=== PATIENT | male | born 1970 | race Caucasian/White ===

== ENCOUNTER 2018-06-29 08:37 | Emergency (ER) | payer SELFPAY ==
[2018-06-29 09:17] LABS: #Eosinphils 0.1 thou/uL (0.0-0.7); #Monocytes 0.6 thou/uL (0.11-0.59); #Neutrophils 3.1 thou/uL (1.40-6.50); %Basophils 0.8 % (0.0-1.0); %Eosinophils 1.3 % (0.0-10.0); %Lymphocytes 21.2 % (21.0-51.0); %Monocytes 12.7 % (0.0-10.0); %Neutrophils 64.1 % (42.0-75.0); Mean Corpuscular HGB CONC 32.2 g/dL (32.0-36.0); Mean Corpuscular Hemoglobin 28.7 pg (27.0-31.0); Mean Corpuscular Volume 89.2 fL (78.0-98.0); Mean Platelet Volume 6.1 fL (7.4-10.4); Platelet Count 355 thou/uL (130-400); RBC Distribution Width 13.1 % (11.5-14.5); Red Blood Cell (RBC) Count 2.78 mill/uL (4.70-6.10); White Blood Cell (WBC) Count 4.8 thou/uL (4.8-10.8)
[2018-06-29 09:25] LABS: INR-International Normal Ratio 1.1; PTT 30.3 SEC (22.9-36.1)
--- NOTE | 2018-06-29 09:25 | RAD ---
CHEST ONE VIEW: History: Chest pain and swelling. Comparison: None. FINDINGS: There is mild fullness of the left hilum. No pneumothorax. No effusion. No acute osseous abnormality. IMPRESSION: Mild fullness of the left hilum. Non-emergent CT of the chest may be beneficial to evaluate bronchiti s versus a mass. POS: [facility]
[2018-06-29] MEDS ORDERED: Furosemide 40 MG/4 ML VIAL ONE (09:34)
[2018-06-29 09:40] LABS: ALT (SGPT) 33 U/L (8-55); AST (SGOT) 36 U/L (5-34); Albumin 3.4 g/dL (3.5-5.0); Alkaline Phosphatase 93 U/L (40-150); Anion Gap 10 mmol/L (10-20); BUN (Urea Nitrogen) 20 mg/dL (8.9-20.6); Bilirubin, Total 0.4 mg/dL (0.2-1.2); Calc. Creatinine Clearance 0 mL/min (70-130); Calcium 8.3 mg/dL (7.8-10.44); Carbon Dioxide 23 mmol/L (22-29); Chloride 108 mmol/L (98-107); Estimated GFR-MDRD 86; Globulin 2.4 g/dL (2.4-3.5); Glucose 102 mg/dL (70-105); Potassium 3.8 mmol/L (3.5-5.1); Protein, Total 5.8 g/dL (6.0-8.3); Sodium 137 mmol/L (136-145)
[2018-06-29 09:43] LABS: CKMB 4.1 ng/mL (0-6.6); Troponin I Less than 0.010 ng/mL (< 0.028)
[2018-06-29] MEDS ORDERED: cloNIDine 0.1 MG TAB ONE (09:44)
[2018-06-29 10:26] LABS: Amphetamine Detected (NotDetected); Medtox Reader # READER 4; Methamphetamine Detected (NotDetected); THC/Cannabinoid Screen Detected (NotDetected)
[2018-06-29 10:27] LABS: Barbiturates Screen Not Detected (NotDetected); Benzodiazepine Screen Not Detected (NotDetected); Cocaine Metabolite Screen Not Detected (NotDetected); Medtox Control Line Valid? VALID (VALID); Methadone Not Detected (NotDetected); Opiate Screen Not Detected (NotDetected); Oxycodone Screen Not Detected (NotDetected); Phencyclidine (PCP) Not Detected (NotDetected); Tricyclic Screen Not Detected (NotDetected)
== END 2018-06-29 10:53 | disposition home or self-care (01) ==
LOC: ERS 08:37
DX: R60.0 Localized edema (principal); I10 Essential (primary) hypertension; F17.210 Nicotine dependence, cigarettes, uncomplicated
CPT/HCPCS: 71045; 80053; 80306; 82274; 82553; 83880; 84484; 85025; 85610; 85730; 93005; 96374; J1940

== ENCOUNTER 2024-01-17 21:09 | Emergency (ER) | payer SELFPAY ==
[~2024-01-17 21:09] MED LIST: Iopamidol-370 76% 500 ML MDV (1 ML CHARGE) ONE
[2024-01-17] MEDS ORDERED: Atropine Sulfate 1 mg/10 ml Syringe ONE (21:20)
[2024-01-17] MEDS ORDERED: EPINEPHrine 1 MG/10 ML Abboject SYRINGE ONE (21:20)
[2024-01-17] MEDS ORDERED: Sodium Bicarb 50 MEQ/50 ML Abboject 8.4% SYRINGE ONE (21:20)
[2024-01-17] MEDS ORDERED: Naloxone HCl 0.4 mg/ml Vial ONE (21:28)
[2024-01-17] MEDS ORDERED: NOREPINEPHRINE 8 MG/250 ML-D5W 250 ML ONE (21:36)
[2024-01-17] MEDS ORDERED: fentaNYL 50 mcg/mL 1 mL Vial ONE (21:36)
[2024-01-17 22:08] LABS: Bacteria/HPF 2+ HPF (None Seen); Bilirubin Negative (Negative); Blood, Urine Trace (Negative); CAUTI Indications for Culture Alt mental st,lethar; Clarity Clear (Clear); Glucose, Urine (Dipstick) Normal (Negative); Ketone, Urine Negative (Negative); Leukocyte Negative Leu/uL (Negative); Nitrite Negative (Negative); Protein, Urine (Dipstick) 50 mg/dL (Neg-Trace); Specific Gravity, Urine 1.022 (1.002-1.036); Squamous Epithelial None Seen HPF (0-3); WBC/HPF None Seen HPF (0-3); pH, Urine 6.5 (5.0-9.0)
[2024-01-17 22:11] LABS: Amphetamine Not Detected (NotDetected); Barbiturates Screen Not Detected (NotDetected); Benzodiazepine Screen Not Detected (NotDetected); Cocaine Metabolite Screen Not Detected (NotDetected); Methadone Not Detected (NotDetected); Methamphetamine Not Detected (NotDetected); Opiate Screen Not Detected (NotDetected); Oxycodone Screen Not Detected (NotDetected); Phencyclidine (PCP) Not Detected (NotDetected); THC/Cannabinoid Screen Not Detected (NotDetected); Tricyclic Screen Not Detected (NotDetected)
[2024-01-17 22:14] LABS: Base Excess (BEa) -4.2 mEq/L (-2.0 to +3.0); CO2 Tension 33.8 mmHg (35.0-45.0); Carboxyhemoglobin (COHb) 0.1 gm% (0.0-3.0); Hematocrit-ABG 40 % (42.0-52.0); Hemoglobin (Hb) 13.6 g/dL (14.0-18.0); O2 Tension (PaO2), arterial 239.5 mmHg (80.0-100.0); Potassium - ABG Lab 3.26 mmol/L (3.70-5.30); pH, Arterial 7.389 (7.35-7.45)
[2024-01-17 22:15] LABS: Analyzer IN Cardio ER; Calcium, Ionized (arterial) 1.04 mmol/L (1.12-1.30); Puncture Site RBR
[2024-01-17 22:16] LABS: Sperm/HPF 4+ HPF (None Seen)
[2024-01-17 22:18] LABS: Urine Culture Reflex No No
[2024-01-17 22:23] LABS: #Basophils 0.04 10x3/uL (0.0-0.2); %Basophils 0.2 % (0.0-1.0); %Eosinophils 0.6 % (0.0-10.0); %Lymphocytes 11.8 % (21.0-51.0); %Monocytes 6.4 % (0.0-10.0); %Neutrophils 80.4 % (42.0-75.0); Hemoglobin 13.2 g/dL (14.0-18.0); Mean Corpuscular HGB CONC 34.7 g/dL (32.0-36.0); Mean Corpuscular Hemoglobin 30.3 pg (27.0-31.0); Mean Corpuscular Volume 87.2 fL (78.0-98.0); Mean Platelet Volume 10.1 fL (7.4-10.4); Platelet Count 218 10x3/uL (130-400); RBC Distribution Width 12.2 % (11.5-14.5); Red Blood Cell (RBC) Count 4.36 mill/uL (4.70-6.10)
[2024-01-17 22:42] LABS: ALT (SGPT) 35 U/L (8-55); AST (SGOT) 29 U/L (5-34); Albumin 3.1 g/dL (3.5-5.0); Alkaline Phosphatase 90 U/L (40-110); Anion Gap 15 mmol/L (10-20); BUN (Urea Nitrogen) 23 mg/dL (8.4-25.7); Bilirubin, Total 0.8 mg/dL (0.2-1.2); Calc. Creatinine Clearance 0 mL/min (70-130); Calcium 7.6 mg/dL (7.8-10.44); Carbon Dioxide 21 mmol/L (22-29); Chloride 113 mmol/L (98-107); Estimated GFR 65; Globulin 2.2 g/dL (2.4-3.5); Glucose 128 mg/dL (70-105); Magnesium 1.7 mg/dL (1.6-2.6); Potassium 3.7 mmol/L (3.5-5.1); Protein, Total 5.3 g/dL (6.0-8.3); Sodium 145 mmol/L (136-145)
[2024-01-17 22:42] LABS: INR-International Normal Ratio 1.4; Prothrombin Time 16.9 sec (12.0-14.7)
[2024-01-17 22:43] LABS: PTT 43.4 sec (22.9-36.1)
[2024-01-17 22:44] LABS: Troponin I Less than 0.010 ng/mL (< 0.028)
[2024-01-17] MEDS ORDERED: Digoxin 0.5 MG/2 ML AMP ONE (22:52)
== END 2024-01-17 23:08 | disposition expired ==
LOC: ERS 21:09
DX: I71.03 Dissection of thoracoabdominal aorta (principal); I10 Essential (primary) hypertension
CPT/HCPCS: 31500; 36415; 36430; 36556; 51702; 70450; 71045; 71275; 74174; 80053; 80306; 81001; 82805; 83605; 83735; 83880; 84484; 85025; 85610; 85730; 86850; 86900; 86901; 87040; 93005; 94002; 94760; J0171; J0461; J1160; J2310; J3010; P9016; Q9967